=== PATIENT | male | born 1995 | race Caucasian/White ===

== ENCOUNTER 2023-08-30 17:29 | Emergency (ER) | payer BC ==
[2023-08-30] MEDS ORDERED: Lidocaine 1% 10 ML MDV INJECT ONE (18:11)
[2023-08-30] MEDS ORDERED: Amoxicillin/Clavulanate K 875-125 MG Tab PO ONE (18:12)
== END 2023-08-30 19:00 | disposition home or self-care (01) ==
LOC: JD.ED 17:29
DX: S01.511A Laceration without foreign body of lip, initial encounter (principal); W54.0XXA Bitten by dog, initial encounter
CPT/HCPCS: 12013; 99283; A9270; J3490